=== PATIENT | male | born 1985 | race Caucasian/White ===

== ENCOUNTER 2024-03-20 17:20 | Emergency (ER) | payer OTHER, SELFPAY ==
[2024-03-20 17:20] VITALS: BMI 31.1
[2024-03-20 18:34] VITALS: BP 185/107
--- NOTE | 2024-03-20 18:43 | ED.GENMED ---
History of Present Illness
<Ling Dobson PA-C - Last Filed: 03/21/24 00:44>
General
Chief Complaint: Musculo-Skeletal Complaint
Source: patient
Exam Limitations: none
Time Seen by Provider: 03/20/24 18:31
Nursing documentation reviewed up to this point in time: agreed with
Travel History
Have you had any contact with someone who has COVID-19?: No
Do you have any symptoms of coronavirus? Fever > 100 degrees, chills, cough, shortness of breath, sore throat, loss of taste or smell, muscle aches, or headache?: No
History of Present Illness
History of Present Illness:
38 y/o M with no reported PMH
castillo collado history ,pt is in distress
2 days ago woke up feeling stiffness in his left neck and shoulder
difficulty moving his neck
the pain has gradually worsened
has pain into his left arm and went to PCP today who thought it was pinched nerve
was given somethin gfor pain/muscle spasm (pill) which didn't help
he now has nausea/vomiting and left arm tingling, is pakcing the room and won't extend his neck
he denies chest pain, fever, chills, vision changes, dizziness, street drugs, shortness of breath
Past History
<Ling Dobson PA-C - Last Filed: 03/21/24 00:44>
Past History
ED Past Medical History: None
ED Past Surgical History: None
Social History
Tobacco: Smoker
Alcohol: None
Drug: Marijuana
Personal: Single
Living: with family
Review of Systems
<Ling Dobson PA-C - Last Filed: 03/21/24 00:44>
Review of Systems
Allergies reviewed?: Yes
All Other Systems: Not applicable
Phy Exam
<Ling Dobson PA-C - Last Filed: 03/21/24 00:44>
Physical Exam
Physical Exam:
GENERAL: Alert , writhing around
HEAD: NCAT
NECK: No midline tenderness, no appreciated muscle spasm the patient has pain with full extension and is holding his back in 20 degrees of flexion with some
CARDIAC: Regular rate and rhythm, no edema
LUNGS: Clear breath sounds bilaterally, no acute respiratory distress, no wheezes/rales/rhonchi
ABDOMEN: Soft, without focal tenderness, no r/g, no cvat, normal bowel sounds, nondistended
NEUROLOGICAL: Alert and oriented, no focal neuro deficits, CN intact, 5/5 strength, sensation intact, normal pulse and sensation in arms and legs
SKIN: Warm and dry, erythenatous papular rash with some erythema to left back but also same rash without erythema to right back; doesn't look like pityriasis or vesicular
? contact derm
MUSCULOSKELETAL: No edema, well perfused.
Back: nontender midline
left upper back trap region slightly tense
PSYCH: Normal and appropriate interaction.
Course
<MARGE Cage Last Filed: 03/21/24 00:44>
Orders/Labs/Results
Orders:
Orders
03/20/24 18:40
CT Neck Angio W/wo Iv Contrast Urgent
Comment:
Reason For Exam: severe left neck pain, numbness, tingling, vomitin
HYDROmorphone [Dilaudid] 1 mg IV NOW STA
03/20/24 18:41
Electrocardiogram (*1) Stat
Reason for Study: Other
Other Reason for Exam: neuro symptoms
EKG- Treatment ONCE
03/20/24 18:42
Complete Blood Count/With Diff Urgent
Comprehensive Metabolic Panel Urgent
03/20/24 20:03
diazePAM [Valium Injection] 5 mg IV NOW STA
03/20/24 20:54
Ketorolac [Toradol] 30 mg IV NOW STA
03/20/24 21:11
Ondansetron Injectable [Zofran] 4 mg IV NOW STA
Abnormal Lab Results
03/20/24
18:42
WBC 17.0 H 10^3/uL
(4.8-10.8)
Abs Immat Gran (auto) 0.1 H 10^3/uL
(0-0.05)
Absolute Neuts (auto) 12.7 H 10^3/uL
(1.4-6.5)
Absolute Monos (auto) 1.0 H 10^3/uL
(0.1-0.6)
Immature Gran % 0.8 H %
(0-0.5)
Lymphocytes % 17.5 L %
(20.5-51.1)
Glucose 108 H mg/dl
(70-99)
Total Bilirubin 1.9 H mg/dl
(0.2-1.3)
Total Protein 8.3 H g/dl
(6.3-8.2)
Albumin 5.1 H g/dl
(3.5-5.0)
03/20/24 18:42
03/20/24 18:42
Vital Signs
Initial and Last Documented VS:
Initial Vital Signs
Temp Pulse Resp Pulse Ox
97.7 F 85 16 98
03/20/24 17:21 03/20/24 17:21 03/20/24 17:21 03/20/24 17:21
Last Documented Vital Signs
Temp Pulse Resp BP Pulse Ox
97.7 F 76 16 156/99 95
03/20/24 17:21 03/20/24 19:56 03/20/24 19:56 03/20/24 22:39 03/20/24 19:56
<Ankita Syed MD - Last Filed: 03/20/24 20:04>
Orders/Labs/Results
Orders:
Orders
03/20/24 18:40
CT Neck Angio W/wo Iv Contrast Urgent
Comment:
Reason For Exam: severe left neck pain, numbness, tingling, vomitin
HYDROmorphone [Dilaudid] 1 mg IV NOW STA
03/20/24 18:41
Electrocardiogram (*1) Stat
Reason for Study: Other
Other Reason for Exam: neuro symptoms
EKG- Treatment ONCE
03/20/24 18:42
Complete Blood Count/With Diff Urgent
Comprehensive Metabolic Panel Urgent
03/20/24 20:03
diazePAM [Valium Injection] 5 mg IV NOW STA
03/20/24 20:54
Ketorolac [Toradol] 30 mg IV NOW STA
03/20/24 21:11
Ondansetron Injectable [Zofran] 4 mg IV NOW STA
Abnormal Lab Results
03/20/24
18:42
WBC 17.0 H 10^3/uL
(4.8-10.8)
Abs Immat Gran (auto) 0.1 H 10^3/uL
(0-0.05)
Absolute Neuts (auto) 12.7 H 10^3/uL
(1.4-6.5)
Absolute Monos (auto) 1.0 H 10^3/uL
(0.1-0.6)
Immature Gran % 0.8 H %
(0-0.5)
Lymphocytes % 17.5 L %
(20.5-51.1)
Glucose 108 H mg/dl
(70-99)
Total Bilirubin 1.9 H mg/dl
(0.2-1.3)
Total Protein 8.3 H g/dl
(6.3-8.2)
Albumin 5.1 H g/dl
(3.5-5.0)
03/20/24 18:42
03/20/24 18:42
Vital Signs
Initial and Last Documented VS:
Initial Vital Signs
Temp Pulse Resp Pulse Ox
97.7 F 85 16 98
03/20/24 17:21 03/20/24 17:21 03/20/24 17:21 03/20/24 17:21
Last Documented Vital Signs
Temp Pulse Resp BP Pulse Ox
97.7 F 76 16 156/99 95
03/20/24 17:21 03/20/24 19:56 03/20/24 19:56 03/20/24 22:39 03/20/24 19:56
<Ling Dobson PA-C - Last Filed: 03/21/24 00:44>
MDM/Problems Addressed
Differential Diagnosis Includes:
trapezius/cervical strain/spasm, torticollis, dissection
MDM/Problems Addressed:
38 y/o M with no reported pmh
here with severe left neck pain worse with movement, limited ROM and now with tinglign in left arm and some dizziness, nausea sypmtoms
started 2 days ago when woke up but has progressed to severe in nature
seen by pcp earlier and given steroids and muscle relaxant but pt is significantly worse tnoghit
no headache or other neuro sypmtoms
pt pacing, anxious, gagging frequently, holding neck in 15 degrees flexion
does not have significant palpable spasm
suspect MSK in nature but given pt's appearance, cta performed to r/o dissection
ekg reviewed, no ischemic changes;
took several meds to help pain, dilaudid did not help; valium helped briefly
then toradol and zofran did seem to singnificantly improve pain
cta neg
leukocytosis likely related to earlier use of steroisd today, took 2 doses and also with pain as acute phase reactant
the rash on his back does appear like a contact rash, probably from the topical OTC pain creams he is using
does not appear to be shingles
seen by ed attending, agree
continue steroids
add valium
d/c the other muscle relaxant
<Ling Dobson PA-C - Last Filed: 03/21/24 00:44>
*Critical Care Note
Total Time (30-74mins, 75-104mins- exclusive of procedures): Not Applicable
ED Attending Note
<Ling Dobson PA-C - Last Filed: 03/21/24 00:44>
-
Portions of this chart may have been created with voice recognition software.� Occasional wrong word or��sound alike� substitutions may have occurred due to the inherent limitations of voice recognition software.
<Ankita Syed MD - Last Filed: 03/20/24 20:04>
ED Attending Note
Patient seen and examined by attending physician: Yes
ED Attending Note:
38-year-old male with complaints of left upper back and neck discomfort that started when he woke up on Sunday after sleeping through the night, constant, significantly worse with certain movements such as turning neck. He denies recent trauma,
fever, chills, sweats, headache, dizziness. He was given a muscle relaxer and Medrol Dosepak and feels no relief of symptoms. Here in the ER, patient is holding his head in a semiflexed position, walks about the room, appears uncomfortable. Of
note, pain was not sudden onset. It feels like a extreme spasm. He denies chest pain, anterior neck pain, throat swelling, trouble swallowing, change in voice, headache, numbness, tingling, focal weakness, abdominal pain, or other complaints. No
midline tenderness to palpation, no neck swelling, trachea midline, voice clear.
Discharge Plan
Departure
Patient Disposition: Home (Routine Discharge)
Date of Disposition: 03/20/24
Time of Disposition: 22:30
Patient with high blood pressure during this ER visit?: Yes
Condition: Fair
Covid-19: Not Applicable
Discharge Problem:
Spasm of left trapezius muscle, Acute torticollis
Instructions: Muscle Spasm ED
Prescriptions:
New
diazepam [Valium] 5 mg tablet
5 mg PO BID PRN (Reason: muscle spasm) Qty: 10 0RF
No Action
oxycodone-acetaminophen 5 MG/325 MG tablet
1 tab PO Q4HPRN PRN (Reason: pain) Qty: 5 0RF
dicyclomine 20 MG tablet
20 mg PO TID PRN (Reason: bowel spasm) Qty: 20 0RF
ondansetron 4 MG tablet,disintegrating
4 mg PO TIDPRN PRN (Reason: nausea/vomiting) Qty: 14 0RF
Referrals:
UNKNOWN - PT DOES,NOT KNOW [Family Provider] -
Activity Restrictions/Additional Instructions:
Were not sure the cause of your pain but it seems highly likely that it is a muscle spasm. You can continue the steroid starting tomorrow that you were prescribed. Add Valium 5 mg 2-3 times a day as needed for muscle spasm rather than the muscle
relaxer you were given earlier today. Do not take both of these medications because they are sedating. You can use Tylenol 3 times a day as well for pain. For the rash you can use the hydrocortisone cream because it appears like maybe you had a
rash from contact, it could be from the topical creams you are using.
Your CAT scan was normal. You did have elevated blood pressure but that may be due to pain. Follow-up with your family doctor. Return for any worsening symptoms like arm weakness or numbness, severe symptoms of pain, vision changes, fever, or any
concern
Interventions
Interventions:
*Risk Screen - Suicide Last Done: 03/20/24 18:20
*General Assessment Last Done: 03/20/24 18:20
*Neglect/Abuse Screening Last Done: 03/20/24 18:20
ED- Fall Risk Assessment Last Done: 03/20/24 18:21
*ED COVID-19 Vaccine History Last Done: 03/20/24 17:21
*Nursing Disposition Last Done: 03/20/24 22:49
ED-Musculoskeletal Assessment Last Done: 03/20/24 18:20
Discharge Date and Time
Discharge Date/Time: 03/20/24 22:49
Print Language: AMHARIC
[2024-03-20] MEDS: DILAUDID 1 MG IV (18:44)
[2024-03-20 18:49] LABS: % Basophils 0.6 % (0-2); % Eosinophils 0.2 % (0-6); % Immature Granulocytes 0.8 % (0-0.5); % Lymphocytes 17.5 % (20.5-51.1); % Monocytes 6.1 % (1.7-9.3); % Neutrophils 74.8 % (42.2-75.2); Absolute Basophils 0.1 10^3/uL (0-0.2); Absolute Immature Granulocytes 0.1 10^3/uL (0-0.05); Absolute Neutrophils 12.7 10^3/uL (1.4-6.5); Hemoglobin 17.4 g/dL (13.0-18.0); Mean Corp Hgb Conc. 36.3 g/dL (33.0-37.0); Mean Corpuscular Hgb 30.3 pg (27.0-31.0); Mean Corpuscular Volume 83.5 fL (80.0-94.0); Mean Platelet Volume 8.9 fL (7.4-10.4); Nucleated Red Blood Cells % 0 % (-); Platelet Count 364 10^3/uL (130-400); Red Blood Cell Count 5.75 10^6/uL (4.70-6.10); Red Cell Dist. Width 12.2 % (11.5-14.5)
[2024-03-20 19:03] LABS: ALT (SGPT) 24 U/L (0-50); AST (SGOT) 32 U/L (17-59); Albumin 5.1 g/dl (3.5-5.0); Alkaline Phosphatase 75 U/L (38-126); Blood Urea Nitrogen 11 mg/dl (9-20); Carbon Dioxide 22 mmol/L (22-30); Chloride 104 mmol/L (98-107); Estimated Creatinine Clearance > 125 ml/min; Glucose 108 mg/dl (70-99); Sodium 139 mmol/L (135-145); Total Bilirubin 1.9 mg/dl (0.2-1.3); Total Protein 8.3 g/dl (6.3-8.2); eGFR > 60.00
[2024-03-20 19:56] VITALS: BP 179/113
[2024-03-20] MEDS: VALIUM INJECTION 5 MG IV (20:08)
[2024-03-20 21:02] VITALS: BP 182/100
[2024-03-20] MEDS: ZOFRAN 4 MG IV (21:14)
[2024-03-20] MEDS: TORADOL 30 MG IV (21:14)
[2024-03-20 22:39] VITALS: BP 156/99
== END 2024-03-20 22:49 | disposition home or self-care (01) ==
LOC: EMR 17:20
PROVIDERS: Physician Assistant; EMERGENCY PHYSICIAN Student in an Organized Health Care Education/Training Program
DX: M62.838 Other muscle spasm (principal); M43.6 Torticollis; F17.200 Nicotine dependence, unspecified, uncomplicated
CPT/HCPCS: 99284; 96374; 96375; 70498; 80053; 85025; 93005; Q9967